=== PATIENT | male | born 1990 | race Caucasian/White ===

== ENCOUNTER 2017-12-09 08:08 | Day surgery (SDC) | payer OTHER ==
[2017-12-09] MEDS ORDERED: NA CHLORIDE 0.9% 1,000 ML ONE (09:15)
[2017-12-09] MEDS ORDERED: FENTANYL CITR 100 MCG/2 ML ONE ×2 (10:44)
[2017-12-09] MEDS ORDERED: MIDAZOLAM HCL 2 MG/2 ML INJ ONE (10:44)
[2017-12-09] MEDS ORDERED: FLUMAZENIL 0.1 MG/ML (5 mL VIAL) IV ONE (10:44)
[2017-12-09] MEDS ORDERED: NALOXONE 0.4 MG/ML VIAL ONE (10:45)
--- NOTE | 2017-12-09 12:45 | RAD REPORT ---
EXAM DESCRIPTION: CT - Perc Abd Abcess Drainage - 12/09/2017 12:19 pm CLINICAL HISTORY: Lymphangioma drainage. COMPARISON: Recent CT studies. FINDINGS: Preoperative diagnosis: Lymphangioma drainage. Post operative diagnosis: Same Conscious Sedation: IV conscious sedation for 45 minutes utilizing fentanyl and midazolam was utilize d. Patient was continuously monitored by nursing staff. Contrast used: NONE Estimated blood loss: less than 5 mL Specimens: Small samples of drained fluid was sent for requested lab studies. The patient was placed recumbent on the table and the abdomen area was prepped and draped in the usua l sterile fashion. 1% lidocaine was infiltrated into the subcutaneous tissues for local anesthesia. U nder computed tomographic guidance, a the drainage catheter was placed in the 8 cm cystic collection in the abdomen. Approximately 300-350 mL of thick white fluid was obtained. Samples were sent for req uested lab studies. The catheter was then removed after full evacuation of the collection. Postprocedure imaging demonstrated no complications. Samples were given to pathology for analysis. Th e patient tolerated the procedure without immediate complication and transferred to the recovery room in stable condition. IMPRESSION: Successful CT-guided lymphangioma drainage procedure as detailed. 45 minutes of monitored IV conscious sedation was utilized. All CT scans are performed using dose optimization technique as appropriate and may include automated exposure control or mA/KV adjustment according to patient size.
[2017-12-09 15:17] VITALS: O2SAT 100; BMI 22.6
[2017-12-09 15:28] VITALS: TEMP 98
[2017-12-09 15:30] VITALS: BP 103/62
== END 2017-12-09 14:10 | disposition home or self-care (01) ==
LOC: DS 08:08
PROVIDERS: ATTEND Surgery
PROC: 0W9F3ZX Drainage of Abdominal Wall, Percutaneous Approach, Diagnostic (ICD-10-PCS; principal; 2017-12-09)
DX: D18.1 Lymphangioma, any site (principal); R10.9 Unspecified abdominal pain
CPT/HCPCS: 49021; 87070; 87075; 87205; 88108; 88305; J2250; J2310; J3010; J7030

== ENCOUNTER 2017-12-30 08:15 | Day surgery (SDC) | payer OTHER ==
[2017-12-30] MEDS ORDERED: NA CHLORIDE 0.9% 1,000 ML ONE (09:10)
[2017-12-30 09:56] VITALS: BMI 20.3
[2017-12-30] MEDS ORDERED: FENTANYL CITR 100 MCG/2 ML ONE ×2 (10:13)
[2017-12-30] MEDS ORDERED: MIDAZOLAM HCL 2 MG/2 ML INJ ONE (10:13)
[2017-12-30] MEDS ORDERED: FLUMAZENIL 0.1 MG/ML (5 mL VIAL) IV ONE (10:14)
[2017-12-30] MEDS ORDERED: DIPHENHYDRAMINE 50 MG/ML VIAL ONE (10:14)
[2017-12-30] MEDS ORDERED: NALOXONE 0.4 MG/ML VIAL ONE (10:14)
--- NOTE | 2017-12-30 12:12 | RAD REPORT ---
EXAM DESCRIPTION: CT - Perc Abd Abcess Drainage - 12/30/2017 11:43 am CLINICAL HISTORY: drainage, lymphangioma COMPARISON: Perc Abd Abcess Drainage dated 12/09/2017 FINDINGS: Preoperative diagnosis: Lymphangioma Post operative diagnosis: Same Conscious Sedation: IV conscious sedation for 60 minutes utilizing fentanyl and midazolam. Patient was continuously monitored by nursing staff. Contrast used: NONE Estimated blood loss: less than 5 mL Specimens: None The patient was placed supine on the table and the left abdomen area was prepped and draped in the [facility] sterile fashion. 1% lidocaine was infiltrated into the subcutaneous tissues for local anesthesia. Under computed tomographic guidance, a 8.5 Swedish all purpose drainage catheter was placed into the collection. 200 mL of fluid was aspirated. The catheter was sutured in place and capped. Postprocedure imaging demonstrated no complications. The patient tolerated the procedure without imme diate complication and transferred to the recovery room in stable condition. IMPRESSION: Successful CT-guided lymphangioma drainage and percutaneous catheter placement. 60 minutes of IV conscious sedation was utilized. All CT scans are performed using dose optimization technique as appropriate and may include automated exposure control or mA/KV adjustment according to patient size.
[2017-12-30] MEDS ORDERED: HYDROCODONE/APAP 7.5/325 MG TAB ONE (12:56)
[2017-12-30 15:31] VITALS: BP 107/58; TEMP 97.2; O2SAT 96
== END 2017-12-30 15:15 | disposition home or self-care (01) ==
LOC: DS 08:15
PROVIDERS: ATTEND Surgery
PROC: 0W9F30Z Drainage of Abdominal Wall with Drainage Device, Percutaneous Approach (ICD-10-PCS; principal; 2017-12-30)
DX: D18.1 Lymphangioma, any site (principal); R10.9 Unspecified abdominal pain
CPT/HCPCS: 36415; 49021; 85610; 85730; J2250; J2310; J3010; J7030